=== PATIENT | female | born 1950 | race Caucasian/White ===

== ENCOUNTER 2020-08-12 17:55 | Inpatient (IN) ==
[2020-08-12 20:36] LABS: Acetaminophen < 10 mcg/mL (10-20); Alanine Aminotransferase 7 Units/L (7-52); Albumin 3.9 g/dL (3.5-5.7); Alkaline Phosphatase 74 Units/L (34-104); Aspartate Amino Transferase 18 Units/L (13-39); BUN/Creatinine Ratio 32 (6-26); Bilirubin,Indirect 0.8 mg/dL (0.0-1.0); Bilirubin,Total 0.8 mg/dL (0.3-1.0); Blood Urea Nitrogen 24 mg/dL (8-23); Calcium 9.2 mg/dL (8.6-10.3); Carbon Dioxide 20 mEq/L (23-29); Chloride 106 mEq/L (98-107); Chol/HDL Ratio 4.3 (0-4.9); Cholesterol 223 mg/dL (< 200); Ethanol < 10 mg/dL (Less than 10); Glucose 86 mg/dL (70-105); HDL Cholesterol 52 mg/dL (40-59); Osmolality,Calculated 285 (280-300); Potassium 4.1 mEq/L (3.5-5.1); Salicylate < 2.5 mg/dL (15.0-30.0); Sodium 136 mEq/L (136-145); eGFR For African Americans > 60 (> 60); eGFR For Non-African Americans > 60 (> 60)
[2020-08-12 20:58] LABS: Basophils # 0.1 K/mcL (0.0-0.2); Basophils % 0.7 %; Eosinophils # 0.3 K/mcL (0.0-0.6); Eosinophils % 3.5 %; Hematocrit 45.1 % (35.3-44.9); Hemoglobin 15.3 g/dL (11.5-15.4); Immature Granulocytes % 0.2 % (0-4); Lymphocytes # 3.7 K/mcL (0.6-4.6); Lymphocytes % 39.4 %; Mean Corpuscular HGB Conc 33.9 g/dL (31.6-35.5); Mean Corpuscular Hemoglobin 29.5 pg (28.0-33.3); Mean Corpuscular Volume 87.1 fL (83.0-100.0); Mean Platelet Volume 10.5 fL (9.4-12.4); Monocytes # 0.5 K/mcL (0.0-1.3); Neutrophils # 4.9 K/mcL (1.6-8.9); Platelet Count 170 K/mcL (140-400); Red Blood Count 5.18 M/mcL (3.82-4.97); Red Cell Distribution Width 12.3 % (11.5-14.5); Segmented Neutrophils % 51.2 %; White Blood Count 9.5 K/mcL (4.3-11.1)
[2020-08-12 21:05] LABS: Estimated Average Glucose 105 mg/dl; Hemoglobin A1C 5.3 %
[2020-08-12 21:22] LABS: Albumin/Globulin Ratio 1.3 (1.1-2.2); Globulin 2.9 g/dL (2.4-3.5); LDL Cholesterol,Calculated 152 mg/dL (< 100); Total Protein 6.8 g/dL (6.4-8.9); Triglycerides 94 mg/dL (< 150)
[2020-08-12 22:06] LABS: Amphetamine Screen,Urine Negative ng/mL (Cutoff=1000); Barbiturate Screen,Urine Negative ng/mL (Cutoff=200); Benzodiazepines Screen,Urine Negative ng/mL (Cutoff=200); Cannabinoid Screen,Urine Negative ng/mL (Cutoff = 50); Cocaine Screen,Urine Negative ng/mL (Cutoff= 300); Opiate Screen,Urine Negative ng/mL (Cutoff=300); Phencyclidine Screen,Urine Negative ng/mL (Cutoff=25)
[2020-08-12 22:12] LABS: Bacteria,Urine Few per hpf (None-Few); Bilirubin,Urine Negative (Negative); Blood,Urine Trace (Negative); Clarity,Urine Turbid (Clear); Color,Urine Yellow (Yellow); Glucose,Urine (UA) Normal (Normal); Ketones,Urine 10 mg/dL (Negative); Leukocyte Esterase,Urine Large (Negative); Mucus,Urine Few per lpf (None-Few); Nitrite,Urine Negative (Negative); Protein,Urine 30 mg/dL (Neg-Trace); Specific Gravity,Urine > 1.030 (1.010-1.025); Squamous Epithelial Cell,Urine Moderate per hpf (None-Few); WBC,Urine 30-50 per hpf (0-3)
[2020-08-12] MEDS ORDERED: cephALEXin 500 MG CAPSULE PO ONE (23:15)
[2020-08-13] MEDS ORDERED: *HR* LORazepam 2 MG/ML VIAL IM PRN (00:33)
[2020-08-13] MEDS ORDERED: MOM Conc 10 ML UD.LIQ PO PRN (00:33)
[2020-08-13] MEDS ORDERED: Haloperidol Lactate 5 MG/ML VIAL IM PRN (00:33)
[2020-08-13] MEDS ORDERED: haloperidoL 5 MG TABLET PO PRN (00:33)
[2020-08-13] MEDS ORDERED: Mag Hydrox/Al Hydrox/Simeth 30 ML UDC PO PRN (00:33)
[2020-08-13] MEDS: cephALEXin 500 MG CAPSULE PO SCH ×3 (13:27→21:07)
[2020-08-14] MEDS: cephALEXin 500 MG CAPSULE PO SCH ×2 (08:57→20:36)
[2020-08-14] MEDS: lisinopriL 10 MG TABLET PO SCH (08:58)
[2020-08-14] MEDS: Metoprolol XL (24 HR) Succ 50 MG TAB.ER.24H PO SCH (08:58)
[2020-08-14] MEDS: hydrOXYzine pamoate 25 MG CAPSULE PO PRN (20:35)
[2020-08-14] MEDS: traZODone 50 MG TABLET PO PRN (20:36)
[2020-08-15 09:02] LABS: Folate 11.8 ng/mL (3.0-16.0)
[2020-08-15] MEDS: lisinopriL 10 MG TABLET PO SCH (09:47)
[2020-08-15] MEDS: cephALEXin 500 MG CAPSULE PO SCH ×2 (09:47→20:56)
[2020-08-15] MEDS: Metoprolol XL (24 HR) Succ 50 MG TAB.ER.24H PO SCH (09:47)
[2020-08-15] MEDS ORDERED: Cyanocobalamin (B-12) 1,000 MCG/ML VIAL IM ONE (17:05)
[2020-08-16] MEDS: lisinopriL 10 MG TABLET PO SCH (08:51)
[2020-08-16] MEDS: Metoprolol XL (24 HR) Succ 50 MG TAB.ER.24H PO SCH (08:51)
[2020-08-16] MEDS: cephALEXin 500 MG CAPSULE PO SCH ×2 (08:51→21:07)
[2020-08-16] MEDS: hydrOXYzine pamoate 25 MG CAPSULE PO PRN (21:07)
[2020-08-16] MEDS: traZODone 50 MG TABLET PO PRN (21:07)
[2020-08-17] MEDS: Metoprolol XL (24 HR) Succ 50 MG TAB.ER.24H PO SCH (08:56)
[2020-08-17] MEDS: lisinopriL 10 MG TABLET PO SCH (08:56)
[2020-08-17] MEDS: cephALEXin 500 MG CAPSULE PO SCH ×2 (08:56→20:53)
[2020-08-17 10:29] LABS: Bacteria,Urine Few per hpf (None-Few); Bilirubin,Urine Negative (Negative); Blood,Urine Negative (Negative); Clarity,Urine Clear (Clear); Color,Urine Colorless (Yellow); Glucose,Urine (UA) Normal (Normal); Ketones,Urine Negative (Negative); Leukocyte Esterase,Urine Large (Negative); Mucus,Urine Few per lpf (None-Few); Nitrite,Urine Negative (Negative); PH,Urine 6.5 pH Units (5.0-8.0); Protein,Urine Negative (Neg-Trace); Specific Gravity,Urine 1.011 (1.010-1.025); Squamous Epithelial Cell,Urine Moderate per hpf (None-Few); Urobilinogen,Urine Normal (Normal)
[2020-08-17] MEDS: traZODone 50 MG TABLET PO PRN (20:53)
[2020-08-17] MEDS: hydrOXYzine pamoate 25 MG CAPSULE PO PRN (20:54)
[2020-08-18] MEDS: cephALEXin 500 MG CAPSULE PO SCH ×2 (12:03→21:06)
[2020-08-18] MEDS: lisinopriL 10 MG TABLET PO SCH (12:03)
[2020-08-18] MEDS: Metoprolol XL (24 HR) Succ 50 MG TAB.ER.24H PO SCH (12:03)
[2020-08-18] MEDS: Acetaminophen 325 MG TABLET PO PRN (21:06)
[2020-08-18] MEDS: traZODone 50 MG TABLET PO PRN (21:07)
[2020-08-18] MEDS: hydrOXYzine pamoate 25 MG CAPSULE PO PRN (21:07)
[2020-08-19 05:06] LABS: Bacteria,Urine Few per hpf (None-Few); Bilirubin,Urine Negative (Negative); Blood,Urine Negative (Negative); Clarity,Urine Clear (Clear); Color,Urine Light-Yellow (Yellow); Glucose,Urine (UA) Normal (Normal); Ketones,Urine Negative (Negative); Leukocyte Esterase,Urine Large (Negative); Mucus,Urine Few per lpf (None-Few); Nitrite,Urine Negative (Negative); PH,Urine 5.5 pH Units (5.0-8.0); Protein,Urine Negative (Neg-Trace); Specific Gravity,Urine 1.015 (1.010-1.025); Squamous Epithelial Cell,Urine Few per hpf (None-Few); Urobilinogen,Urine Normal (Normal)
[2020-08-19] MEDS: Metoprolol XL (24 HR) Succ 50 MG TAB.ER.24H PO SCH (08:57)
[2020-08-19] MEDS: cephALEXin 500 MG CAPSULE PO SCH ×2 (08:57→20:42)
[2020-08-19] MEDS: lisinopriL 10 MG TABLET PO SCH (08:57)
[2020-08-19] MEDS: traZODone 50 MG TABLET PO PRN (20:42)
[2020-08-19] MEDS: hydrOXYzine pamoate 25 MG CAPSULE PO PRN (20:42)
[2020-08-19] MEDS: Acetaminophen 325 MG TABLET PO PRN (20:42)
[2020-08-20] MEDS: lisinopriL 10 MG TABLET PO SCH (09:12)
[2020-08-20] MEDS: Metoprolol XL (24 HR) Succ 50 MG TAB.ER.24H PO SCH (09:12)
[2020-08-20] MEDS: cephALEXin 500 MG CAPSULE PO SCH ×2 (09:13→20:33)
[2020-08-20] MEDS: Acetaminophen 325 MG TABLET PO PRN (20:33)
[2020-08-20] MEDS: hydrOXYzine pamoate 25 MG CAPSULE PO PRN (20:33)
[2020-08-20] MEDS: traZODone 50 MG TABLET PO PRN (20:33)
[2020-08-21] MEDS: cephALEXin 500 MG CAPSULE PO SCH ×2 (09:32→21:26)
[2020-08-21] MEDS: Metoprolol XL (24 HR) Succ 50 MG TAB.ER.24H PO SCH (09:32)
[2020-08-21] MEDS: lisinopriL 10 MG TABLET PO SCH (09:32)
[2020-08-21] MEDS: traZODone 50 MG TABLET PO PRN (21:26)
[2020-08-21] MEDS: hydrOXYzine pamoate 25 MG CAPSULE PO PRN (21:26)
[2020-08-22] MEDS: lisinopriL 10 MG TABLET PO SCH (09:14)
[2020-08-22] MEDS: cephALEXin 500 MG CAPSULE PO SCH (09:14)
[2020-08-22] MEDS: Metoprolol XL (24 HR) Succ 50 MG TAB.ER.24H PO SCH (09:14)
[2020-08-23] MEDS: lisinopriL 10 MG TABLET PO SCH (09:05)
[2020-08-23] MEDS: Metoprolol XL (24 HR) Succ 50 MG TAB.ER.24H PO SCH (09:06)
[2020-08-23] MEDS: *HR* LORazepam 1 MG TABLET PO PRN (15:43)
[2020-08-24] MEDS: lisinopriL 10 MG TABLET PO SCH (09:10)
[2020-08-24] MEDS: Metoprolol XL (24 HR) Succ 50 MG TAB.ER.24H PO SCH (09:11)
[2020-08-24] MEDS: hydrOXYzine pamoate 25 MG CAPSULE PO PRN (20:03)
[2020-08-24] MEDS: traZODone 50 MG TABLET PO PRN (20:03)
[2020-08-25] MEDS: Metoprolol XL (24 HR) Succ 50 MG TAB.ER.24H PO SCH (08:56)
[2020-08-25] MEDS: lisinopriL 10 MG TABLET PO SCH (08:56)
[2020-08-26] MEDS: lisinopriL 10 MG TABLET PO SCH (08:55)
[2020-08-26] MEDS: Metoprolol XL (24 HR) Succ 50 MG TAB.ER.24H PO SCH (08:56)
[2020-08-26] MEDS ORDERED: Cyanocobalamin (B-12) 1,000 MCG/ML VIAL IM ONE (16:30)
[2020-08-26 16:36] LABS: Alanine Aminotransferase 17 Units/L (7-52); Albumin 4.6 g/dL (3.5-5.7); Albumin/Globulin Ratio 1.4 (1.1-2.2); Alkaline Phosphatase 96 Units/L (34-104); Aspartate Amino Transferase 21 Units/L (13-39); BUN/Creatinine Ratio 26 (6-26); Bilirubin,Total 0.5 mg/dL (0.3-1.0); Blood Urea Nitrogen 24 mg/dL (8-23); Calcium 10.3 mg/dL (8.6-10.3); Carbon Dioxide 28 mEq/L (23-29); Chloride 102 mEq/L (98-107); Globulin 3.3 g/dL (2.4-3.5); Glucose 91 mg/dL (70-105); Osmolality,Calculated 290 (280-300); Potassium 4.5 mEq/L (3.5-5.1); Sodium 138 mEq/L (136-145); Total Protein 7.9 g/dL (6.4-8.9); eGFR For African Americans > 60 (> 60); eGFR For Non-African Americans > 60 (> 60)
[2020-08-26] MEDS: Vitamin B Complex/Vit C/Vit E 1 EACH TABLET PO SCH (16:51)
[2020-08-26] MEDS: *HR* LORazepam 1 MG TABLET PO PRN (17:54)
[2020-08-26] MEDS: hydrOXYzine pamoate 25 MG CAPSULE PO PRN (20:03)
[2020-08-26] MEDS: traZODone 50 MG TABLET PO PRN (20:03)
[2020-08-27] MEDS: Vitamin B Complex/Vit C/Vit E 1 EACH TABLET PO SCH (09:30)
[2020-08-27] MEDS: Metoprolol XL (24 HR) Succ 50 MG TAB.ER.24H PO SCH (09:30)
[2020-08-27] MEDS: lisinopriL 10 MG TABLET PO SCH (09:31)
[2020-08-27] MEDS: Cyanocobalamin (B-12) 1,000 MCG/ML VIAL IM SCH (13:04)
[2020-08-27 20:42] LABS: Bacteria,Urine Few per hpf (None-Few); Bilirubin,Urine Negative (Negative); Blood,Urine Small (Negative); Clarity,Urine Turbid (Clear); Color,Urine Yellow (Yellow); Glucose,Urine (UA) Normal (Normal); Ketones,Urine Negative (Negative); Leukocyte Esterase,Urine Large (Negative); Mucus,Urine Few per lpf (None-Few); Nitrite,Urine Negative (Negative); PH,Urine 5.5 pH Units (5.0-8.0); Protein,Urine Trace mg/dL (Neg-Trace); Specific Gravity,Urine 1.026 (1.010-1.025); Squamous Epithelial Cell,Urine Moderate per hpf (None-Few); Urobilinogen,Urine Normal (Normal); WBC,Urine 30-50 per hpf (0-3)
[2020-08-27] MEDS: hydrOXYzine pamoate 25 MG CAPSULE PO PRN (20:55)
[2020-08-27] MEDS: traZODone 50 MG TABLET PO PRN (20:55)
[2020-08-27] MEDS: Acetaminophen 325 MG TABLET PO PRN (20:58)
[2020-08-28] MEDS: Vitamin B Complex/Vit C/Vit E 1 EACH TABLET PO SCH (08:53)
[2020-08-28] MEDS: Metoprolol XL (24 HR) Succ 50 MG TAB.ER.24H PO SCH (08:53)
[2020-08-28] MEDS: lisinopriL 10 MG TABLET PO SCH (08:54)
[2020-08-28] MEDS: Cyanocobalamin (B-12) 1,000 MCG/ML VIAL IM SCH (09:38)
[2020-08-28] MEDS: hydrOXYzine pamoate 25 MG CAPSULE PO PRN (21:21)
[2020-08-28] MEDS: traZODone 50 MG TABLET PO PRN (21:21)
[2020-08-28] MEDS: Acetaminophen 325 MG TABLET PO PRN (21:22)
[2020-08-29] MEDS: lisinopriL 10 MG TABLET PO SCH (09:17)
[2020-08-29] MEDS: Metoprolol XL (24 HR) Succ 50 MG TAB.ER.24H PO SCH (09:17)
[2020-08-29] MEDS: Vitamin B Complex/Vit C/Vit E 1 EACH TABLET PO SCH (09:17)
[2020-08-29] MEDS: Cyanocobalamin (B-12) 1,000 MCG/ML VIAL IM SCH (09:18)
[2020-08-29] MEDS: traZODone 50 MG TABLET PO PRN (21:04)
[2020-08-29] MEDS: Acetaminophen 325 MG TABLET PO PRN (21:04)
[2020-08-29] MEDS: hydrOXYzine pamoate 25 MG CAPSULE PO PRN (21:04)
[2020-08-30] MEDS: Metoprolol XL (24 HR) Succ 50 MG TAB.ER.24H PO SCH (09:43)
[2020-08-30] MEDS: lisinopriL 10 MG TABLET PO SCH (09:43)
[2020-08-30] MEDS: Vitamin B Complex/Vit C/Vit E 1 EACH TABLET PO SCH (09:43)
[2020-08-30] MEDS: traZODone 50 MG TABLET PO PRN (21:04)
[2020-08-30] MEDS: hydrOXYzine pamoate 25 MG CAPSULE PO PRN (21:04)
[2020-08-31] MEDS: lisinopriL 10 MG TABLET PO SCH (09:31)
[2020-08-31] MEDS: Metoprolol XL (24 HR) Succ 50 MG TAB.ER.24H PO SCH (09:31)
[2020-08-31] MEDS: Vitamin B Complex/Vit C/Vit E 1 EACH TABLET PO SCH (09:31)
[2020-08-31] MEDS: traZODone 50 MG TABLET PO PRN (20:42)
[2020-09-01] MEDS: Vitamin B Complex/Vit C/Vit E 1 EACH TABLET PO SCH (09:06)
[2020-09-01] MEDS: lisinopriL 10 MG TABLET PO SCH (09:06)
[2020-09-01] MEDS: Metoprolol XL (24 HR) Succ 50 MG TAB.ER.24H PO SCH (09:06)
[2020-09-01] MEDS: traZODone 50 MG TABLET PO PRN (20:51)
[2020-09-02] MEDS: Vitamin B Complex/Vit C/Vit E 1 EACH TABLET PO SCH (08:47)
[2020-09-02] MEDS: lisinopriL 10 MG TABLET PO SCH (08:48)
[2020-09-02] MEDS: Metoprolol XL (24 HR) Succ 50 MG TAB.ER.24H PO SCH (08:48)
[2020-09-02] MEDS: traZODone 50 MG TABLET PO PRN (21:29)
[2020-09-03] MEDS: lisinopriL 10 MG TABLET PO SCH (09:11)
[2020-09-03] MEDS: Metoprolol XL (24 HR) Succ 50 MG TAB.ER.24H PO SCH (09:11)
[2020-09-03] MEDS: Vitamin B Complex/Vit C/Vit E 1 EACH TABLET PO SCH (09:11)
[2020-09-04] MEDS: lisinopriL 10 MG TABLET PO SCH (09:08)
[2020-09-04] MEDS: Metoprolol XL (24 HR) Succ 50 MG TAB.ER.24H PO SCH (09:08)
[2020-09-04] MEDS: Vitamin B Complex/Vit C/Vit E 1 EACH TABLET PO SCH (09:08)
[2020-09-04] MEDS: traZODone 50 MG TABLET PO PRN (22:02)
[2020-09-05] MEDS: Metoprolol XL (24 HR) Succ 50 MG TAB.ER.24H PO SCH (09:07)
[2020-09-05] MEDS: Vitamin B Complex/Vit C/Vit E 1 EACH TABLET PO SCH (09:07)
[2020-09-05] MEDS: lisinopriL 10 MG TABLET PO SCH (09:08)
[2020-09-05] MEDS: traZODone 50 MG TABLET PO PRN (21:54)
[2020-09-06] MEDS: Metoprolol XL (24 HR) Succ 50 MG TAB.ER.24H PO SCH (08:48)
[2020-09-06] MEDS: lisinopriL 10 MG TABLET PO SCH (08:48)
[2020-09-06] MEDS: Vitamin B Complex/Vit C/Vit E 1 EACH TABLET PO SCH (08:48)
[2020-09-06] MEDS: traZODone 50 MG TABLET PO PRN (21:04)
[2020-09-07] MEDS: lisinopriL 10 MG TABLET PO SCH (09:36)
[2020-09-07] MEDS: Vitamin B Complex/Vit C/Vit E 1 EACH TABLET PO SCH (09:37)
[2020-09-07] MEDS: Metoprolol XL (24 HR) Succ 50 MG TAB.ER.24H PO SCH (09:37)
[2020-09-07] MEDS: traZODone 50 MG TABLET PO PRN (21:00)
[2020-09-08] MEDS: Vitamin B Complex/Vit C/Vit E 1 EACH TABLET PO SCH (09:04)
[2020-09-08] MEDS: Metoprolol XL (24 HR) Succ 50 MG TAB.ER.24H PO SCH (09:04)
[2020-09-08] MEDS: lisinopriL 10 MG TABLET PO SCH (09:04)
[2020-09-09] MEDS: Vitamin B Complex/Vit C/Vit E 1 EACH TABLET PO SCH (08:50)
[2020-09-09] MEDS: lisinopriL 10 MG TABLET PO SCH (08:50)
[2020-09-09] MEDS: Metoprolol XL (24 HR) Succ 50 MG TAB.ER.24H PO SCH (08:50)
[2020-09-09] MEDS: traZODone 50 MG TABLET PO PRN (20:36)
[2020-09-10] MEDS: lisinopriL 10 MG TABLET PO SCH (09:05)
[2020-09-10] MEDS: Metoprolol XL (24 HR) Succ 50 MG TAB.ER.24H PO SCH (09:06)
[2020-09-10] MEDS: Vitamin B Complex/Vit C/Vit E 1 EACH TABLET PO SCH (09:06)
[2020-09-10] MEDS: traZODone 50 MG TABLET PO PRN (20:24)
[2020-09-10] MEDS: Acetaminophen 325 MG TABLET PO PRN (20:24)
[2020-09-11] MEDS: lisinopriL 10 MG TABLET PO SCH (08:52)
[2020-09-11] MEDS: Vitamin B Complex/Vit C/Vit E 1 EACH TABLET PO SCH (08:52)
[2020-09-11] MEDS: Metoprolol XL (24 HR) Succ 50 MG TAB.ER.24H PO SCH (08:52)
[2020-09-11] MEDS: traZODone 50 MG TABLET PO PRN (21:54)
[2020-09-12] MEDS: lisinopriL 10 MG TABLET PO SCH (09:32)
[2020-09-12] MEDS: Vitamin B Complex/Vit C/Vit E 1 EACH TABLET PO SCH (09:32)
[2020-09-12] MEDS: Metoprolol XL (24 HR) Succ 50 MG TAB.ER.24H PO SCH (09:32)
[2020-09-12] MEDS: traZODone 50 MG TABLET PO PRN (22:01)
[2020-09-13] MEDS: Vitamin B Complex/Vit C/Vit E 1 EACH TABLET PO SCH (08:17)
[2020-09-13] MEDS: Metoprolol XL (24 HR) Succ 50 MG TAB.ER.24H PO SCH (13:03)
[2020-09-13] MEDS: lisinopriL 10 MG TABLET PO SCH (13:03)
[2020-09-13] MEDS: traZODone 50 MG TABLET PO PRN (21:05)
[2020-09-14] MEDS: Metoprolol XL (24 HR) Succ 50 MG TAB.ER.24H PO SCH (09:35)
[2020-09-14] MEDS: Vitamin B Complex/Vit C/Vit E 1 EACH TABLET PO SCH (09:35)
[2020-09-14] MEDS: lisinopriL 10 MG TABLET PO SCH (09:35)
[2020-09-14] MEDS: traZODone 50 MG TABLET PO PRN (20:59)
[2020-09-15] MEDS: Vitamin B Complex/Vit C/Vit E 1 EACH TABLET PO SCH (09:46)
[2020-09-15] MEDS: lisinopriL 10 MG TABLET PO SCH (09:47)
[2020-09-15] MEDS: Metoprolol XL (24 HR) Succ 50 MG TAB.ER.24H PO SCH (09:47)
[2020-09-15 19:33] LABS: Bilirubin,Urine Negative (Negative); Blood,Urine Negative (Negative); Clarity,Urine Clear (Clear); Color,Urine Colorless (Yellow); Glucose,Urine (UA) Normal (Normal); Ketones,Urine Negative (Negative); Leukocyte Esterase,Urine Trace (Negative); Nitrite,Urine Negative (Negative); PH,Urine 6.5 pH Units (5.0-8.0); Protein,Urine Negative (Neg-Trace); RBC,Urine 0-3 per hpf (0-3); Specific Gravity,Urine < 1.005 (1.010-1.025); Urobilinogen,Urine Normal (Normal); WBC,Urine 0-3 per hpf (0-3)
[2020-09-15] MEDS: traZODone 50 MG TABLET PO PRN (20:52)
[2020-09-16] MEDS: Vitamin B Complex/Vit C/Vit E 1 EACH TABLET PO SCH (09:18)
[2020-09-16] MEDS: Metoprolol XL (24 HR) Succ 50 MG TAB.ER.24H PO SCH (09:18)
[2020-09-16] MEDS: lisinopriL 10 MG TABLET PO SCH (09:18)
[2020-09-16] MEDS: traZODone 50 MG TABLET PO PRN (20:38)
[2020-09-17] MEDS: Vitamin B Complex/Vit C/Vit E 1 EACH TABLET PO SCH (08:56)
[2020-09-17] MEDS: Metoprolol XL (24 HR) Succ 50 MG TAB.ER.24H PO SCH (08:56)
[2020-09-17] MEDS: lisinopriL 10 MG TABLET PO SCH (08:59)
[2020-09-17] MEDS: traZODone 50 MG TABLET PO PRN (20:42)
[2020-09-18] MEDS: Metoprolol XL (24 HR) Succ 50 MG TAB.ER.24H PO SCH (09:16)
[2020-09-18] MEDS: lisinopriL 10 MG TABLET PO SCH (09:16)
[2020-09-18] MEDS: Vitamin B Complex/Vit C/Vit E 1 EACH TABLET PO SCH (09:17)
[2020-09-18] MEDS: traZODone 50 MG TABLET PO PRN (21:26)
[2020-09-19] MEDS: Metoprolol XL (24 HR) Succ 50 MG TAB.ER.24H PO SCH (08:57)
[2020-09-19] MEDS: Vitamin B Complex/Vit C/Vit E 1 EACH TABLET PO SCH (08:57)
[2020-09-19] MEDS: lisinopriL 10 MG TABLET PO SCH (08:58)
[2020-09-19] MEDS: Acetaminophen 325 MG TABLET PO PRN (19:50)
[2020-09-19] MEDS: traZODone 50 MG TABLET PO PRN (21:53)
[2020-09-20] MEDS: Metoprolol XL (24 HR) Succ 50 MG TAB.ER.24H PO SCH (09:32)
[2020-09-20] MEDS: Vitamin B Complex/Vit C/Vit E 1 EACH TABLET PO SCH (09:32)
[2020-09-20] MEDS: lisinopriL 10 MG TABLET PO SCH (09:33)
[2020-09-20] MEDS: traZODone 50 MG TABLET PO PRN (21:43)
[2020-09-20] MEDS: Acetaminophen 325 MG TABLET PO PRN (21:45)
[2020-09-21] MEDS: Vitamin B Complex/Vit C/Vit E 1 EACH TABLET PO SCH (09:31)
[2020-09-21] MEDS: lisinopriL 10 MG TABLET PO SCH (09:31)
[2020-09-21] MEDS: Metoprolol XL (24 HR) Succ 50 MG TAB.ER.24H PO SCH (09:31)
[2020-09-21] MEDS: traZODone 50 MG TABLET PO PRN (20:41)
[2020-09-22] MEDS: Vitamin B Complex/Vit C/Vit E 1 EACH TABLET PO SCH (08:06)
[2020-09-22] MEDS: Metoprolol XL (24 HR) Succ 50 MG TAB.ER.24H PO SCH (08:06)
[2020-09-22] MEDS: lisinopriL 10 MG TABLET PO SCH (08:06)
[2020-09-22] MEDS: Acetaminophen 325 MG TABLET PO PRN (21:24)
[2020-09-22] MEDS: traZODone 50 MG TABLET PO PRN (21:24)
[2020-09-23] MEDS: Metoprolol XL (24 HR) Succ 50 MG TAB.ER.24H PO SCH (08:53)
[2020-09-23] MEDS: lisinopriL 10 MG TABLET PO SCH (08:53)
[2020-09-23] MEDS: Vitamin B Complex/Vit C/Vit E 1 EACH TABLET PO SCH (08:53)
[2020-09-23] MEDS: traZODone 50 MG TABLET PO PRN (21:44)
[2020-09-23] MEDS: Acetaminophen 325 MG TABLET PO PRN (21:45)
[2020-09-24] MEDS: lisinopriL 10 MG TABLET PO SCH (09:44)
[2020-09-24] MEDS: Metoprolol XL (24 HR) Succ 50 MG TAB.ER.24H PO SCH (09:44)
[2020-09-24] MEDS: Vitamin B Complex/Vit C/Vit E 1 EACH TABLET PO SCH (09:44)
[2020-09-24] MEDS: traZODone 50 MG TABLET PO PRN (20:45)
[2020-09-24] MEDS: Acetaminophen 325 MG TABLET PO PRN (20:46)
[2020-09-25] MEDS: Metoprolol XL (24 HR) Succ 50 MG TAB.ER.24H PO SCH (09:16)
[2020-09-25] MEDS: Vitamin B Complex/Vit C/Vit E 1 EACH TABLET PO SCH (09:17)
[2020-09-25] MEDS: lisinopriL 10 MG TABLET PO SCH (09:18)
[2020-09-25] MEDS: traZODone 50 MG TABLET PO PRN (20:51)
[2020-09-25] MEDS: Acetaminophen 325 MG TABLET PO PRN (20:54)
[2020-09-26] MEDS: Vitamin B Complex/Vit C/Vit E 1 EACH TABLET PO SCH (08:52)
[2020-09-26] MEDS: lisinopriL 10 MG TABLET PO SCH (08:52)
[2020-09-26] MEDS: Metoprolol XL (24 HR) Succ 50 MG TAB.ER.24H PO SCH (08:52)
[2020-09-26] MEDS: traZODone 50 MG TABLET PO PRN (20:34)
[2020-09-26] MEDS: Acetaminophen 325 MG TABLET PO PRN (20:37)
[2020-09-27] MEDS: Metoprolol XL (24 HR) Succ 50 MG TAB.ER.24H PO SCH (08:08)
[2020-09-27] MEDS: Vitamin B Complex/Vit C/Vit E 1 EACH TABLET PO SCH (08:09)
[2020-09-27] MEDS: lisinopriL 10 MG TABLET PO SCH (08:10)
[2020-09-27] MEDS: Acetaminophen 325 MG TABLET PO PRN (21:08)
[2020-09-27] MEDS: traZODone 50 MG TABLET PO PRN (21:08)
[2020-09-28] MEDS: lisinopriL 10 MG TABLET PO SCH (09:13)
[2020-09-28] MEDS: Metoprolol XL (24 HR) Succ 50 MG TAB.ER.24H PO SCH (09:13)
[2020-09-28] MEDS: Vitamin B Complex/Vit C/Vit E 1 EACH TABLET PO SCH (09:14)
[2020-09-28] MEDS: Acetaminophen 325 MG TABLET PO PRN (20:24)
[2020-09-28] MEDS: traZODone 50 MG TABLET PO PRN (20:24)
[2020-09-29] MEDS: lisinopriL 10 MG TABLET PO SCH (08:39)
[2020-09-29] MEDS: Metoprolol XL (24 HR) Succ 50 MG TAB.ER.24H PO SCH (08:39)
[2020-09-29] MEDS: Vitamin B Complex/Vit C/Vit E 1 EACH TABLET PO SCH (08:39)
[2020-09-29] MEDS: traZODone 50 MG TABLET PO PRN (20:25)
[2020-09-29] MEDS: Acetaminophen 325 MG TABLET PO PRN (20:25)
[2020-09-30] MEDS: lisinopriL 10 MG TABLET PO SCH (09:21)
[2020-09-30] MEDS: Metoprolol XL (24 HR) Succ 50 MG TAB.ER.24H PO SCH (09:21)
[2020-09-30] MEDS: Vitamin B Complex/Vit C/Vit E 1 EACH TABLET PO SCH (09:22)
[2020-09-30] MEDS: Acetaminophen 325 MG TABLET PO PRN (20:36)
[2020-09-30] MEDS: traZODone 50 MG TABLET PO PRN (20:36)
[2020-10-01] MEDS: lisinopriL 10 MG TABLET PO SCH (09:08)
[2020-10-01] MEDS: Vitamin B Complex/Vit C/Vit E 1 EACH TABLET PO SCH (09:08)
[2020-10-01] MEDS: Metoprolol XL (24 HR) Succ 50 MG TAB.ER.24H PO SCH (09:08)
[2020-10-01] MEDS: traZODone 50 MG TABLET PO PRN (21:12)
[2020-10-01] MEDS: Acetaminophen 325 MG TABLET PO PRN (21:14)
[2020-10-02] MEDS: Vitamin B Complex/Vit C/Vit E 1 EACH TABLET PO SCH (08:41)
[2020-10-02] MEDS: lisinopriL 10 MG TABLET PO SCH (08:41)
[2020-10-02] MEDS: Metoprolol XL (24 HR) Succ 50 MG TAB.ER.24H PO SCH (08:41)
[2020-10-02] MEDS: traZODone 50 MG TABLET PO PRN (21:10)
[2020-10-02] MEDS: Acetaminophen 325 MG TABLET PO PRN (21:11)
[2020-10-03] MEDS: Vitamin B Complex/Vit C/Vit E 1 EACH TABLET PO SCH (09:28)
[2020-10-03] MEDS: lisinopriL 10 MG TABLET PO SCH (09:28)
[2020-10-03] MEDS: Metoprolol XL (24 HR) Succ 50 MG TAB.ER.24H PO SCH (09:28)
[2020-10-03] MEDS: traZODone 50 MG TABLET PO PRN (21:16)
[2020-10-03] MEDS: Acetaminophen 325 MG TABLET PO PRN (21:17)
[2020-10-04] MEDS: Metoprolol XL (24 HR) Succ 50 MG TAB.ER.24H PO SCH (09:14)
[2020-10-04] MEDS: lisinopriL 10 MG TABLET PO SCH (09:14)
[2020-10-04] MEDS: Vitamin B Complex/Vit C/Vit E 1 EACH TABLET PO SCH (09:15)
[2020-10-04] MEDS: traZODone 50 MG TABLET PO PRN (20:53)
[2020-10-04] MEDS: Ibuprofen 400 MG TABLET PO PRN (20:54)
[2020-10-05] MEDS: lisinopriL 10 MG TABLET PO SCH (10:12)
[2020-10-05] MEDS: Vitamin B Complex/Vit C/Vit E 1 EACH TABLET PO SCH (10:12)
[2020-10-05] MEDS: Metoprolol XL (24 HR) Succ 50 MG TAB.ER.24H PO SCH (10:12)
[2020-10-05] MEDS: Ibuprofen 400 MG TABLET PO PRN (20:29)
[2020-10-05] MEDS: traZODone 50 MG TABLET PO PRN (20:30)
[2020-10-06] MEDS: lisinopriL 10 MG TABLET PO SCH (08:52)
[2020-10-06] MEDS: Metoprolol XL (24 HR) Succ 50 MG TAB.ER.24H PO SCH (08:52)
[2020-10-06] MEDS: Vitamin B Complex/Vit C/Vit E 1 EACH TABLET PO SCH (08:52)
[2020-10-06] MEDS: traZODone 50 MG TABLET PO PRN (21:06)
[2020-10-06] MEDS: Ibuprofen 400 MG TABLET PO PRN (21:08)
[2020-10-07] MEDS: Metoprolol XL (24 HR) Succ 50 MG TAB.ER.24H PO SCH (08:40)
[2020-10-07] MEDS: Vitamin B Complex/Vit C/Vit E 1 EACH TABLET PO SCH (08:41)
[2020-10-07] MEDS: lisinopriL 10 MG TABLET PO SCH (08:41)
[2020-10-07] MEDS: traZODone 50 MG TABLET PO PRN (20:44)
[2020-10-07] MEDS: Ibuprofen 400 MG TABLET PO PRN (20:44)
[2020-10-08] MEDS: lisinopriL 10 MG TABLET PO SCH (09:09)
[2020-10-08] MEDS: Metoprolol XL (24 HR) Succ 50 MG TAB.ER.24H PO SCH (09:09)
[2020-10-08] MEDS: Vitamin B Complex/Vit C/Vit E 1 EACH TABLET PO SCH (09:09)
[2020-10-08] MEDS: Ibuprofen 400 MG TABLET PO PRN (20:46)
[2020-10-08] MEDS: traZODone 50 MG TABLET PO PRN (20:46)
[2020-10-09] MEDS: Vitamin B Complex/Vit C/Vit E 1 EACH TABLET PO SCH (08:53)
[2020-10-09] MEDS: Metoprolol XL (24 HR) Succ 50 MG TAB.ER.24H PO SCH (08:53)
[2020-10-09] MEDS: lisinopriL 10 MG TABLET PO SCH (08:54)
[2020-10-09] MEDS: Acetaminophen 325 MG TABLET PO PRN (20:56)
[2020-10-09] MEDS: traZODone 50 MG TABLET PO PRN (20:57)
[2020-10-10] MEDS: Vitamin B Complex/Vit C/Vit E 1 EACH TABLET PO SCH (09:05)
[2020-10-10] MEDS: lisinopriL 10 MG TABLET PO SCH (09:05)
[2020-10-10] MEDS: Metoprolol XL (24 HR) Succ 50 MG TAB.ER.24H PO SCH (09:06)
[2020-10-10] MEDS: traZODone 50 MG TABLET PO PRN (20:05)
[2020-10-10] MEDS: Acetaminophen 325 MG TABLET PO PRN (20:05)
[2020-10-11] MEDS: Vitamin B Complex/Vit C/Vit E 1 EACH TABLET PO SCH (09:22)
[2020-10-11] MEDS: lisinopriL 10 MG TABLET PO SCH (09:23)
[2020-10-11] MEDS: Metoprolol XL (24 HR) Succ 50 MG TAB.ER.24H PO SCH (09:23)
[2020-10-11 16:05] LABS: Adenovirus Not Detected (Not Detect); Bordetella Pertussis Not Detected (Not Detect); Chlamydophila pneumoniae Not Detected (Not Detect); Coronavirus 229E Not Detected (Not Detect); Coronavirus HKU1 Not Detected (Not Detect); Coronavirus NL63 Not Detected (Not Detect); Coronavirus OC43 Not Detected (Not Detect); Human Metapneumovirus Not Detected (Not Detect); Human Rhinovirus/Enterovirus Not Detected (Not Detect); Influenza A Subtype 2009 H1 Not Detected (Not Detect); Influenza B Not Detected (Not Detect); Mycoplasma pneumoniae Not Detected (Not Detect); Parainfluenza Virus 1 Not Detected (Not Detect); Parainfluenza Virus 2 Not Detected (Not Detect); Parainfluenza Virus 3 Not Detected (Not Detect); Parainfluenza Virus 4 Not Detected (Not Detect); Respiratory Syncytial Virus Not Detected (Not Detect); SARS-CoV-2 Not Detected (Not Detect)
[2020-10-11] MEDS: traZODone 50 MG TABLET PO PRN (20:37)
[2020-10-12] MEDS: Vitamin B Complex/Vit C/Vit E 1 EACH TABLET PO SCH (08:48)
[2020-10-12] MEDS: Metoprolol XL (24 HR) Succ 50 MG TAB.ER.24H PO SCH (08:49)
[2020-10-12] MEDS: lisinopriL 10 MG TABLET PO SCH (08:49)
[2020-10-12] MEDS ORDERED: *HR* LORazepam 2 MG/ML VIAL IM PRN (09:36)
[2020-10-12] MEDS ORDERED: Acetaminophen 325 MG TABLET PO PRN (09:38)
[2020-10-12] MEDS ORDERED: Mag Hydrox/Al Hydrox/Simeth 30 ML UDC PO PRN (09:43)
[2020-10-12] MEDS ORDERED: Haloperidol Lactate 5 MG/ML VIAL IM PRN (09:43)
[2020-10-12] MEDS ORDERED: haloperidoL 5 MG TABLET PO PRN (09:43)
[2020-10-12] MEDS ORDERED: MOM Conc 10 ML UD.LIQ PO PRN (09:43)
[2020-10-12] MEDS: traZODone 50 MG TABLET PO PRN (20:22)
[2020-10-13] MEDS: Vitamin B Complex/Vit C/Vit E 1 EACH TABLET PO SCH (09:12)
[2020-10-13] MEDS: lisinopriL 10 MG TABLET PO SCH (09:12)
[2020-10-13] MEDS: Metoprolol XL (24 HR) Succ 50 MG TAB.ER.24H PO SCH (09:12)
[2020-10-13] MEDS: traZODone 50 MG TABLET PO PRN (20:34)
[2020-10-14] MEDS: Ibuprofen 400 MG TABLET PO PRN ×2 (07:27→20:51)
[2020-10-14] MEDS: Vitamin B Complex/Vit C/Vit E 1 EACH TABLET PO SCH (08:39)
[2020-10-14] MEDS: traZODone 50 MG TABLET PO PRN (20:52)
[2020-10-15] MEDS: Vitamin B Complex/Vit C/Vit E 1 EACH TABLET PO SCH (08:54)
[2020-10-15 09:35] VITALS: BP 155/78
[2020-10-15 15:08] LABS: Adenovirus Not Detected (Not Detect); Bordetella Pertussis Not Detected (Not Detect); Chlamydophila pneumoniae Not Detected (Not Detect); Coronavirus 229E Not Detected (Not Detect); Coronavirus HKU1 Not Detected (Not Detect); Coronavirus NL63 Not Detected (Not Detect); Coronavirus OC43 Not Detected (Not Detect); Human Metapneumovirus Not Detected (Not Detect); Human Rhinovirus/Enterovirus Not Detected (Not Detect); Influenza A Subtype 2009 H1 Not Detected (Not Detect); Influenza B Not Detected (Not Detect); Mycoplasma pneumoniae Not Detected (Not Detect); Parainfluenza Virus 1 Not Detected (Not Detect); Parainfluenza Virus 2 Not Detected (Not Detect); Parainfluenza Virus 3 Not Detected (Not Detect); Parainfluenza Virus 4 Not Detected (Not Detect); Respiratory Syncytial Virus Not Detected (Not Detect); SARS-CoV-2 Not Detected (Not Detect)
== END 2020-10-15 16:40 | DRG 884 ==
LOC: EMEROOARM 17:55 → 1ANU 08-13 01:00
PROVIDERS: ADMIT Psychiatry & Neurology Forensic Psychiatry; ATTEND Psychiatry & Neurology Forensic Psychiatry